=== PATIENT | female | born 1955 | race Caucasian/White ===

== ENCOUNTER 2019-05-31 18:34 | Emergency (ER) | payer OTHER ==
[2019-05-31] MEDS ORDERED: Ondansetron PF 4 MG/2 ML Vial ONE (19:10)
[2019-05-31] MEDS ORDERED: Sodium Chloride 0.9% 1,000 ML ONE (19:10)
[2019-05-31] MEDS ORDERED: Morphine 4 MG/ML VIAL ONE (19:10)
[2019-05-31 19:12] LABS: Bilirubin Negative (Negative); Blood, Urine Large (Negative); Clarity Clear (Clear); Glucose, Urine (Dipstick) Negative (Negative); Leukocyte Trace (Negative); Nitrite Negative (Negative); Protein, Urine (Dipstick) 30 mg/dL (Neg-Trace); Urobilinogen 0.2 mg/dL (Less than 2)
[2019-05-31 19:29] LABS: Bacteria/HPF None Seen HPF (None Seen); RBC/HPF Greater than 50 HPF (0-3); Squamous Epithelial 0-3 HPF (0-3); WBC/HPF 0-3 HPF (0-3)
[2019-05-31 19:30] LABS: #Basophils 0.1 thou/uL (0.0-0.2); #Eosinphils 0.3 thou/uL (0.0-0.7); #Lymphocytes 1.5 thou/uL (1.20-3.40); #Monocytes 0.6 thou/uL (0.11-0.59); #Neutrophils 6.5 thou/uL (1.40-6.50); %Basophils 1.2 % (0.0-1.0); %Lymphocytes 16.6 % (21.0-51.0); %Monocytes 6.8 % (0.0-10.0); %Neutrophils 72.5 % (42.0-75.0); Hemoglobin 14.7 g/dL (12.0-16.0); Mean Corpuscular Volume 87.4 fL (78.0-98.0); Mean Platelet Volume 7.1 fL (7.4-10.4); Platelet Count 334 thou/uL (130-400); RBC Distribution Width 14.1 % (11.5-14.5); Red Blood Cell (RBC) Count 5.26 mill/uL (4.20-5.40)
[2019-05-31 19:31] LABS: ALT (SGPT) 21 U/L (8-55); AST (SGOT) 16 U/L (5-34); Albumin 4.3 g/dL (3.4-4.8); Alkaline Phosphatase 89 U/L (40-110); Anion Gap 18 mmol/L (10-20); BUN (Urea Nitrogen) 11 mg/dL (9.8-20.1); Bilirubin, Total 0.4 mg/dL (0.2-1.2); Calc. Creatinine Clearance 0 mL/min (70-130); Calcium 10.2 mg/dL (7.8-10.44); Carbon Dioxide 24 mmol/L (23-31); Chloride 105 mmol/L (98-107); Estimated GFR-MDRD 43; Globulin 3.6 g/dL (2.4-3.5); Glucose 151 mg/dL (80-115); Lipase 23 U/L (8-78); Potassium 4.3 mmol/L (3.5-5.1); Protein, Total 7.9 g/dL (6.0-8.3); Sodium 143 mmol/L (136-145)
[2019-05-31] MEDS ORDERED: Morphine 2 MG/ML SYRINGE ONE (20:04)
--- NOTE | 2019-05-31 20:47 | CT ---
CT abdomen and pelvis performed without contrast enhancement HISTORY: Right-sided abdominal pain. COMPARISON: None. FINDINGS: Linear change in the lingula and right middle lobe is consistent with atelectasis or scar. The liver, spleen, pancreas and gallbladder regions appear unremarkable given the limitations of a noncontrast study. Right and left adrenal glands are normal in appearance. An exophytic hypodensity involving the left k idney is most compatible with a cyst. Bilateral punctate renal calculi are seen. There is also small focus of calcification along the cortex of the right kidney this could possibly be related to s ome type of cyst or mass, difficult to assess on a noncontrast exam a contrast study would be required. There is right-sided hydronephrosis and hydroureter this is related to a 3 mm right ureterovesical ju nction calculus. There is no significant periaortic or mesenteric adenopathy. CT of pelvis performed without contrast enhancement: There is no evidence of adenopathy, mass or free fluid. IMPRESSION: 1. Bilateral renal calculi with a 3 mm calculus causing mild right-sided hydronephrosis and hydrouret er to the ureterovesical junction level. 2. Incompletely characterized hypodensities involving both kidneys
[2019-05-31] MEDS ORDERED: Ketorolac Tromethamine 30 MG/ML VIAL ONE (21:01)
== END 2019-05-31 21:21 | disposition home or self-care (01) ==
LOC: NAV ERS 18:34
DX: N13.2 Hydronephrosis with renal and ureteral calculous obstruction (principal); E11.9 Type 2 diabetes mellitus without complications; E78.1 Pure hyperglyceridemia; E78.5 Hyperlipidemia, unspecified; J44.9 Chronic obstructive pulmonary disease, unspecified; F41.9 Anxiety disorder, unspecified; F32.9 Major depressive disorder, single episode, unspecified; F17.210 Nicotine dependence, cigarettes, uncomplicated; Z79.82 Long term (current) use of aspirin; Z79.84 Long term (current) use of oral hypoglycemic drugs; Z79.899 Other long term (current) drug therapy
CPT/HCPCS: 74176; 80053; 81003; 81015; 83605; 83690; 85025; 96374; 96375; 96376; J1885; J2270; J2405; J7050